=== PATIENT | male | born 1990 | race African-American/Black ===

== ENCOUNTER 2016-09-06 19:51 | Emergency (ER) | payer OTHER ==
[~2016-09-06] VITALS: Ht 175.3 cm; Wt 88.5 kg
[2016-09-06] MEDS ORDERED: NAPROXEN 250 MG TAB PO ONE (21:30)
[2016-09-06 22:39] VITALS: BP 158/74
--- NOTE | 2016-09-07 01:14 | REP ---
Clinical: Pain and swelling. Technique: AP, lateral, bilateral oblique views right foot . Findings: The osseous structures and joint spaces are intact and normal. There is no evidence for acute fracture or dislocation. Surrounding soft tissues are unremarkable. No subcutaneous emphysema or radiodense foreign body. Impression: Normal examination. No acute fracture or dislocation. Signed by Rudy Adams MD 09/07/2016 01:06 A
--- NOTE | 2016-09-07 01:16 | REP ---
Clinical: Lateral pain . Technique: AP, lateral, bilateral oblique views right ankle . Findings: No acute fracture or dislocation. Skeletal structures and joint spaces are intact and normal. Ankle mortise appears stable. No subcutaneous emphysema or radiodense foreign body. Impression: Normal right ankle radiograph series. Signed by Rudy Adams MD 09/07/2016 01:07 A
== END 2016-09-06 22:45 | disposition home or self-care (01) ==
LOC: M ED 21:02
DX: S90.01XA Contusion of right ankle, initial encounter (principal); S90.31XA Contusion of right foot, initial encounter; W22.8XXA Striking against or struck by other objects, initial encounter; Y92.89 Other specified places as the place of occurrence of the external cause; Y93.89 Activity, other specified; Y99.1 Military activity